=== PATIENT | female | born 1995 | race Caucasian/White ===

== ENCOUNTER 2017-01-03 14:16 | Outpatient (CLI) | payer MEDICAID ==
[~2017-01-03] VITALS: Ht 160 cm; Wt 79.0 kg
[2017-01-03 14:37] VITALS: Ht 160 cm; Wt 79.0 kg
[2017-01-03 14:38] VITALS: BP 103/56; PULSE 110
[2017-01-03] MEDS ORDERED: PRENAT PO (14:40)
--- NOTE | 2017-01-03 15:22 | RADRPT ---
PROCEDURE: Limited obstetric ultrasound CLINICAL INDICATION: Pain , labor TECHNIQUE: Multiple transverse and longitudinal grayscale images of the pelvis were obtained small sabdominally and transvaginally.. COMPARISON: same day FINDINGS: The cervix is closed with a length of 3.2 cm. There is a single viable intrauterine gestation. Cardiac activity is present with 134 beats per min [place]. There is a vertex presentation. The placenta is fundal. There is no evidence for an abruption or placenta previa. RPTAT: AA IMPRESSION: Cervix length measures 3.2 cm. .José Manuel Marino MD, Date Time Electronically viewed and signed by .José Manuel Marino MD, on 01/03/2017 15:21 .S/
[2017-01-03 15:44] LABS: ADD UMIC YES; UR ASCORBIC ACID NEGATIVE (NEGATIVE); UR BILIRUBIN (Dip) NEGATIVE (NEGATIVE); UR BLOOD (Dip) NEGATIVE (NEGATIVE); UR CLARITY SLIGHTLY CLOUDY (CLEAR); UR COLOR YELLOW (YELLOW); UR GLUCOSE (Dip) NEGATIVE (NEGATIVE); UR KETONES (Dip) NEGATIVE (NEGATIVE); UR LEUKOCYTE ESTERASE (Dip) TRACE Leu/ul (NEGATIVE); UR MUCUS FEW /HPF (NONE SEEN); UR NITRITE (Dip) NEGATIVE (NEGATIVE); UR RBC 2 /HPF (0-5); UR SPECIFIC GRAVITY (Dip) 1.026 (1.003-1.030); UR SQUAMOUS EPITHELIAL CELL FEW /HPF (FEW); UR TOTAL PROTEIN (Dip) 1+ mg/dl (NEGATIVE); UR UROBILINOGEN (Dip) 1+ mg/dL (NEGATIVE)
--- NOTE | 2017-01-03 16:42 | QN ---
Documentation Comment iiup 26 weeks g1 co of DFM vss exam wnl us wnl ua wnl a/p iup 26 bweeks false labor dc home EMIGDIO YEE MD Jan 03, 2017 16:42
--- NOTE | 2017-01-03 18:23 | TRIAGE ---
OB Triage Datetime Report Generated by CPN: 01/03/2017 18:22 Datetime: 01/03/2017 16:43 Stage of : OB Triage Datetime: 01/03/2017 16:19 Labor Evaluation Frequency: 0 Monitor Mode: External Resting Tone [place]: Relaxed Heart Rate FHR Baseline Rate: 135 Monitor Mode: External US Variability: Moderate 6-25 bpm Decelerations: None Category: Category I Pain Assessment Pain Scale: 2 Pain Presence: Constant Pain Type: Cramping Pain Location: Abdomen Pain Goal: 3 Pain Relief Measures: Comfort Measures Datetime: 01/03/2017 15:04 Labor Evaluation Frequency: 0 Monitor Mode: External Pattern: Normal: <= 5 Contractions in 10 Minutes Resting Tone [place]: Relaxed Heart Rate FHR Baseline Rate: 130 Monitor Mode: External US Variability: Moderate 6-25 bpm Accelerations: 10X10 Decelerations: None Category: Category I Pain Assessment Pain Scale: 2 Pain Presence: Constant Pain Type: Cramping Pain Location: Abdomen Pain Goal: 3 Pain Relief Measures: Comfort Measures Datetime: 01/03/2017 14:47 Stage of : OB Triage Datetime: 01/03/2017 14:42 Stage of : OB Triage Assessment Type: Triage Maternal Assessment Level of Consciousness: Fully Conscious DTR's/Clonus: DTRs 2+; No Clonus Headache: Denies Blurred Vision: No Respiratory Effort: Unlabored; Regular Rhythm; Equal Expansion Breath Sounds, Left: Clear and Equal Breath Sounds, Right: Clear and Equal Nausea/Vomiting: Denies RUQ Epigastric Pain: Denies Facial Edema: None Temperature Route: Axillary Fall Risk Assessment History of Falling: (0) No Secondary Diagnosis: (0) No Ambulatory Aid: (0) Bedrest/Nurse Assist IV Therapy: (0) No Gait: (0) Normal/Bedrest/Immobile Mental Status: (0) Oriented to Own Ability Fall Score: 0 Fall Risk Score Definition: No Risk: No action required Labor Evaluation Frequency: 0 Monitor Mode: External Pattern: Normal: <= 5 Contractions in 10 Minutes Resting Tone [place]: Relaxed Heart Rate FHR Baseline Rate: 135 Monitor Mode: External US Variability: Moderate 6-25 bpm Accelerations: 10X10 Decelerations: None Category: Category I Pain Assessment Pain Scale: 10 (Annotations: WITH CONTRACTION APPROX Q 1 HOUR) Pain Presence: Intermittent Pain Type: Cramping Pain Location: Abdomen Pain Goal: 3 Pain Relief Measures: Comfort Measures Datetime: 01/03/2017 14:40 Time of Arrival: 01/03/2017 14:00 EGA: 28.1 Arrived By: Ambulatory Arrived From: Home Chief Complaint: C/O UC'S THIS AM, DENIES BLEEDING OR LEAKING OF FLUID Movement: Decreased Contractions: Occasional Rupture of Membranes: Denies Vaginal Bleeding: None Vaginal Discharge: Denies Recent Sexual Intercouse: Denies Abdominal Trauma: Not Applicable Patient Complaints: Cramping Time Provider Notified: 01/03/2017 14:47 Provider Notified: JOSELITO Initial Plan: MONITOR, CL, U/A
== END 2017-01-03 16:55 | disposition home or self-care (01) ==
LOC: L-D 14:16 → OBT 14:16
DX: O47.02 False labor before 37 completed weeks of gestation, second trimester (principal); Z3A.26 26 weeks gestation of pregnancy
CPT/HCPCS: 76817; 81001; Z7500; G0463

== ENCOUNTER 2017-01-23 11:37 | Outpatient (CLI) | payer MEDICAID ==
[~2017-01-23] VITALS: Ht 160 cm; Wt 79.8 kg
[~2017-01-23 11:37] MED LIST: PRENAT PO
[2017-01-23 12:05] VITALS: BP 106/63; PULSE 83; RESP 20
[2017-01-23 12:08] VITALS: Ht 160 cm; Wt 79.8 kg
[2017-01-23] MEDS ORDERED: ACETAMINOPHEN 500 MG TAB PO STA (12:28)
[2017-01-23 13:07] LABS: BASOPHILS % 0.3 % (0.0-2.0); EOSINOPHILS # 0.1 10^3/ul (0.0-0.5); EOSINOPHILS % 0.7 % (0.0-7.0); HEMATOCRIT 33.1 % (37.0-47.0); HEMOGLOBIN 10.9 g/dl (12.0-16.0); LYMPHOCYTES # 1.4 10^3/ul (0.8-2.9); LYMPHOCYTES % 20.5 % (15.0-51.0); MEAN CORPUSCULAR HEMOGLOBIN 31.2 pg (29.0-33.0); MEAN CORPUSCULAR HGB CONC 32.9 g/dl (32.0-37.0); MEAN CORPUSCULAR VOLUME 94.8 fl (82.0-101.0); MEAN PLATELET VOLUME 10.6 fl (7.4-10.4); MONOCYTE # 0.3 10^3/ul (0.3-0.9); MONOCYTES % 4.9 % (0.0-11.0); NEUTROPHIL # 5.1 10^3/ul (1.6-7.5); NEUTROPHILS % 73.5 % (39.0-77.0); PLATELET COUNT 257 10^3/UL (140-415); RED BLOOD COUNT 3.49 10^6/ul (4.20-5.40); WHITE BLOOD COUNT 6.9 10^3/ul (4.8-10.8)
[2017-01-23 13:11] LABS: ADD UMIC YES; UR ASCORBIC ACID NEGATIVE (NEGATIVE); UR BILIRUBIN (Dip) NEGATIVE (NEGATIVE); UR BLOOD (Dip) NEGATIVE (NEGATIVE); UR CLARITY SLIGHTLY CLOUDY (CLEAR); UR COLOR YELLOW (YELLOW); UR GLUCOSE (Dip) NEGATIVE (NEGATIVE); UR KETONES (Dip) NEGATIVE (NEGATIVE); UR LEUKOCYTE ESTERASE (Dip) 1+ Leu/ul (NEGATIVE); UR MUCUS FEW /HPF (NONE SEEN); UR NITRITE (Dip) NEGATIVE (NEGATIVE); UR RBC 1 /HPF (0-5); UR SPECIFIC GRAVITY (Dip) 1.019 (1.003-1.030); UR SQUAMOUS EPITHELIAL CELL FEW /HPF (FEW); UR TOTAL PROTEIN (Dip) NEGATIVE (NEGATIVE); UR UROBILINOGEN (Dip) NEGATIVE (NEGATIVE)
--- NOTE | 2017-01-23 13:24 | RADRPT ---
PROCEDURE: US OB biophysical profile. CLINICAL INDICATION: decreased movements TECHNIQUE: Multiple sonographic images of the pelvis were obtained. The images were reviewed on a PACS workstation. COMPARISON: 01/03/2017 FINDINGS: There is a single viable intrauterine gestation. Cardiac activity is present with 128 beats per min [place]. There is a vertex presentation. The placenta is posterior. There is no evidence of placental abruption. There is a normal amount of amniotic fluid with an NICHELLE = 9.1 cm. Biophysical profile: movement 2/2 tone 2/2. breathing 2/2 NICHELLE 2/2 Total 11/27 RPTAT: AA . IMPRESSION: Normal biophysical profile. . .José Manuel Marino MD, MD Date Time Electronically viewed and signed by .José Manuel Marino MD, MD on 01/23/2017 13:24 .S/
[2017-01-23 13:34] LABS: INR 0.97; PROTIME 12.9 Sec (12.2-14.2)
[2017-01-23 13:35] LABS: PARTIAL THROMBOPLASTIN TIME 30.4 Sec (25.0-35.0)
[2017-01-23 13:37] LABS: ALBUMIN 3.7 g/dl (3.3-4.9); ALBUMIN/GLOBULIN RATIO 1.05; BILIRUBIN,INDIRECT 0.2 mg/dl (0-1.1); BILIRUBIN,TOTAL 0.2 mg/dl (0.2-1.3); CALCIUM 9.3 mg/dl (8.4-10.2); CREATININE 0.57 mg/dl (0.44-1.00); POTASSIUM 4.1 mmol/L (3.5-5.1); TOTAL PROTEIN 7.2 g/dl (6.1-8.1); URIC ACID 4.7 mg/dl (3.1-7.9)
--- NOTE | 2017-01-23 15:50 | TRIAGE ---
OB Triage Datetime Report Generated by CPN: 01/23/2017 15:50 Datetime: 01/23/2017 14:26 EGA: 30.5 Datetime: 01/23/2017 13:00 Stage of : OB Triage Maternal Assessment Level of Consciousness: Fully Conscious Labor Evaluation Frequency: 1uc/hr Monitor Mode: External Duration (sec)2399: 60 Quality: Mild Resting Tone [place]: Relaxed Heart Rate FHR Baseline Rate: 125 Monitor Mode: External US Variability: Moderate 6-25 bpm Accelerations: 15X15 Decelerations: None Category: Category I Pain Assessment Pain Scale: 10 Pain Presence: Constant Pain Type: Ache Pain Location: Head Pain Goal: 3 Pain Relief Measures: Pain Medication Given Vaginal Exam Membrane Status: Intact Vaginal Bleeding: None Datetime: 01/23/2017 11:51 Maternal Assessment Level of Consciousness: Fully Conscious Headache: Temporal Blurred Vision: No Nausea/Vomiting: Denies RUQ Epigastric Pain: Denies Facial Edema: None Monitor Mode: External US FHR Baseline Changes: No Baseline Change Variability: Moderate 6-25 bpm Accelerations: 15X15 Decelerations: None Category: Category I Pain Assessment Pain Scale: 10 Pain Presence: Constant Pain Type: Ache Pain Location: Right Leg Pain Goal: 3 Pain Relief Measures: Comfort Measures Pain Assessment Comments: PAIN X 2 DAYS Vaginal Exam Membrane Status: Intact Datetime: 01/23/2017 11:45 Monitor Mode: External Monitor Mode: External US Datetime: 01/23/2017 11:43 Time of Arrival: 01/23/2017 11:43 EGA: 31.0 Arrived By: Wheelchair Arrived From: Home Chief Complaint: REG LEG SCIATICA; DECREASED FM Chief Complaint: from clinic from for further observatio- abscent movements per clinic exam Movement: Decreased Movement: Present Contractions: Denies/Absent Rupture of Membranes: Denies Rupture of Membranes: Denies Vaginal Bleeding: None Vaginal Discharge: Denies Vaginal Discharge: Denies Recent Sexual Intercouse: Denies Recent Sexual Intercouse: Denies Abdominal Trauma: Not Applicable Abdominal Trauma: Not Applicable Patient Complaints: Other Patient Complaints: Other Provider Notified: ARDALAN Initial Plan: NST Initial Plan: NST/ BPP Datetime: 01/03/2017 18:17 Arrived By: Wheelchair Datetime: 01/03/2017 14:42 Fall Risk Assessment Fall Score: 0 Fall Risk Score Definition: No Risk: No action required Datetime: 01/03/2017 14:40 EGA: 28.1
[2017-01-23] MEDS ORDERED: ACETAMINOPHEN 325 MG TAB PO PRN (16:30)
--- NOTE | 2017-01-23 18:15 | PN ---
Triage Information Date/Time January 20, 2017 Reason for visit: Headache, low back pain, pain in the right lower extremity after she had moved heavy objects yesterday. Increased pain with moving and walking patient reports headache In upper part of the head and frontal area. Denies any blurred vision or epigastric pain denies any prior history of hypertension in the past.. Reports had a migraine headache but this headache is different than her migraine. Reports 7-8 out of 10 headache after he received the Tylenol thousand milligrams in triage Weeks of Gestation 30 weeks and 5 days /Para 2 para 1 Diabetes: none Hypertention: none Additional information 23-year-old 3 para 1 with IUP at 30 weeks and 5 days presented to triage complaining of right lower extremity after she moved heavy objects increased with moving as well as headache 8-10 out of 10. The patient had a history of migraine headache but this headache is different than her migraine. Denies any nausea or vomiting. Denies any blurred vision or epigastric pain. Denies any prior history of PIH in the past. Objective Vital Signs Date Time Temp Pulse Resp B/P Pulse Ox O2 Delivery O2 Flow Rate FiO2 01/23/17 12:05 98.1 83 20 106/63 98 Heart Rate: 130's Contractions: None Exam General appearance: Alert and oriented 4. Patient appears to be in moderate distress. HEENT: WNL Neck: Supple abdomen: Soft, gravid, no tenderness, no rebound tenderness, no guarding, no rigidity Fundal height consistent with gestational age NST: Category 1 Back: No tenderness in the vertebrae. No CVA tenderness, no crepitation Extremities: No calf tenderness, no click no cords palpable, negative Homans sign straight leg raise test positive patient has limitation in moving of the right leg due to increased pain with movement. Results/Medications Result Diagram: 01/23/17 1245 01/23/17 1245 Results 24 hrs Laboratory Tests Test 01/23/17 10:14 01/23/17 12:45 Urine Color YELLOW Urine Clarity SLIGHTLY CLOUDY A Urine pH 6.0 Urine Specific [place] 1.019 Urine Ketones NEGATIVE Urine Nitrite NEGATIVE Urine Bilirubin NEGATIVE Urine Urobilinogen NEGATIVE Urine Leukocyte Esterase 1+ H Urine Microscopic RBC 1 Urine Microscopic WBC 4 Urine Squamous Epithelial Cells FEW Urine Mucus FEW A Urine Hemoglobin NEGATIVE Urine Glucose NEGATIVE Urine Total Protein NEGATIVE White Blood Count 6.9 Red Blood Count 3.49 L Hemoglobin 10.9 L Hematocrit 33.1 L Mean Corpuscular Volume 94.8 Mean Corpuscular Hemoglobin 31.2 Mean Corpuscular Hemoglobin Concent 32.9 Red Cell Distribution Width 13.0 Platelet Count 257 Mean Platelet Volume 10.6 H Neutrophils % 73.5 Lymphocytes % 20.5 Monocytes % 4.9 Eosinophils % 0.7 Basophils % 0.3 Nucleated Red Blood Cells % 0.0 Neutrophils # 5.1 Lymphocytes # 1.4 Monocytes # 0.3 Eosinophils # 0.1 Basophils # 0.0 Nucleated Red Blood Cells # 0.0 Prothrombin Time 12.9 Prothrombin Time Ratio 1.0 INR International Normalized Ratio 0.97 Activated Partial Thromboplast Time 30.4 Fibrinogen 556.0 H Sodium Level 138 Potassium Level 4.1 Chloride Level 105 Carbon Dioxide Level 26 Anion Gap 11 Blood Urea Nitrogen 9 Creatinine 0.57 Glucose Level 76 Uric Acid 4.7 Calcium Level 9.3 Total Bilirubin 0.2 Direct Bilirubin 0.00 Indirect Bilirubin 0.2 Aspartate Amino Transf (AST/SGOT) 22 Alanine Aminotransferase (ALT/SGPT) 25 Alkaline Phosphatase 165 H Total Protein 7.2 Albumin 3.7 Globulin 3.50 H Albumin/Globulin Ratio 1.05 Imaging Results PROCEDURE: US OB biophysical profile. CLINICAL INDICATION: decreased movements TECHNIQUE: Multiple sonographic images of the pelvis were obtained. The images were reviewed on a PACS workstation. COMPARISON: 01/03/2017 FINDINGS: There is a single viable intrauterine gestation. Cardiac activity is present with 128 beats per minute. There is a vertex presentation. The placenta is posterior. There is no evidence of placental abruption. There is a normal amount of amniotic fluid with an NICHELLE = 9.1 cm. Biophysical profile: movement 2/2 tone 2/2. breathing 2/2 NICHELLE 2/2 Total 11/27 RPTAT: AA . IMPRESSION: Normal biophysical profile. . Disposition: Discharge Assessment/Plan IUP at 30 weeks and 5 days No evidence of labor PPROM Headache, persistent, no evidence of PIH patient had a history of migraine headache. Per patient this is different than her migraine PIH labs are negative Low back pain with radiation to the thigh and right leg, radiculopathy No obstetrical issue at this point Patient will be transferred and discharged to emergency room for further evaluation of headache and radiculopathy likely sciatica. Patient was given strict labor precautions and kick count and follow-up after discharge from ED with her OB physician within 24-48 hours. Patient verbalized understanding. HANSEL OKEEFE MD Jan 23, 2017 18:15
== END 2017-01-23 16:08 | disposition home or self-care (01) ==
LOC: L-D 11:37 → OBT 11:37
PROVIDERS: ATTEND Obstetrics & Gynecology Obstetrics
DX: O26.893 Other specified pregnancy related conditions, third trimester (principal); Z3A.30 30 weeks gestation of pregnancy; R10.13 Epigastric pain; M79.661 Pain in right lower leg
CPT/HCPCS: 36415; 76818; 80053; 81001; 84560; 85025; 85384; 85610; 85730; Z7500; Z7610; G0463

== ENCOUNTER 2017-01-23 16:09 | Emergency (ER) | END 2017-01-24 06:23 | disposition left against medical advice (07) | DX: Z53.21 Procedure and treatment not carried out due to patient leaving prior to being seen by health care provider (principal) ==